=== PATIENT | male | born 1960 | race Caucasian/White ===

== ENCOUNTER → 2023-09-19 10:16 | Outpatient (REF) | payer BC, SELFPAY ==
[2023-09-19 11:17] LABS: % Basophils 0.6 % (0-2); % Immature Granulocytes 0.2 % (0-0.5); % Lymphocytes 20.4 % (20.5-51.1); % Monocytes 9.3 % (1.7-9.3); % Neutrophils 67.5 % (42.2-75.2); Absolute Eosinophils 0.1 10^3/uL (0-0.7); Absolute Lymphocytes 1.1 10^3/uL (1.2-3.4); Absolute Monocytes 0.5 10^3/uL (0.1-0.6); Absolute Neutrophils 3.7 10^3/uL (1.4-6.5); Hematocrit 41.4 % (39.0-52.0); Hemoglobin 14.6 g/dL (13.0-18.0); Mean Corp Hgb Conc. 35.3 g/dL (33.0-37.0); Mean Corpuscular Hgb 30.7 pg (27.0-31.0); Mean Platelet Volume 9.9 fL (7.4-10.4); Nucleated Red Blood Cells % 0 % (-); Platelet Count 193 10^3/uL (130-400); Red Blood Cell Count 4.76 10^6/uL (4.70-6.10); Red Cell Dist. Width 12.9 % (11.5-14.5); White Blood Cell Count 5.4 10^3/uL (4.8-10.8)
[2023-09-19 11:50] LABS: ALT (SGPT) 31 U/L (0-50); AST (SGOT) 29 U/L (17-59); Albumin 4.3 g/dl (3.5-5.0); Alkaline Phosphatase 81 U/L (38-126); Blood Urea Nitrogen 33 mg/dl (9-20); Carbon Dioxide 25 mmol/L (22-30); Chloride 105 mmol/L (98-107); Glucose 148 mg/dl (70-99); HDL Cholesterol 65 mg/dl; LDL Cholesterol, Calculated 102 mg/dl; Potassium 5.7 mmol/L (3.5-5.1); Sodium 140 mmol/L (135-145); Total Cholesterol 175 mg/dl (50-199); Total Protein 6.7 g/dl (6.3-8.2); Triglyceride 42 mg/dl (10-149); Very Low Density Lipoprotein 8 mg/dl (0-30); eGFR > 60.00
[2023-09-19 12:08] LABS: Free T4 1.64 ng/dl (0.78-2.19)
[2023-09-19 12:22] LABS: TSH 0.43 uIU/ml (0.47-4.68)
[2023-09-20 09:24] LABS: Glycohemoglobin (HgbA1c) 5.9 % (4.0-5.6)
== END ==
LOC: REG 10:16
PROVIDERS: ATTENDING PHYSICIAN Physician Assistant; FAMILY PHYSICIAN Family Medicine
DX: E11.9 Type 2 diabetes mellitus without complications (principal); E03.9 Hypothyroidism, unspecified
CPT/HCPCS: 36415; 80053; 80061; 83036; 84439; 84443; 85025

== ENCOUNTER → 2023-11-01 11:36 | Outpatient (REF) | payer BC, SELFPAY ==
[2023-11-01 12:58] LABS: % Basophils 0.6 % (0-2); % Eosinophils 0.7 % (0-6); % Immature Granulocytes 0.3 % (0-0.5); % Monocytes 7.4 % (1.7-9.3); Absolute Eosinophils 0.1 10^3/uL (0-0.7); Absolute Lymphocytes 1.3 10^3/uL (1.2-3.4); Absolute Monocytes 0.5 10^3/uL (0.1-0.6); Absolute Neutrophils 5.2 10^3/uL (1.4-6.5); Hematocrit 41.5 % (39.0-52.0); Mean Corp Hgb Conc. 36.1 g/dL (33.0-37.0); Mean Corpuscular Hgb 31.5 pg (27.0-31.0); Mean Corpuscular Volume 87.2 fL (80.0-94.0); Mean Platelet Volume 9.6 fL (7.4-10.4); Nucleated Red Blood Cells % 0 % (-); Platelet Count 173 10^3/uL (130-400); Red Blood Cell Count 4.76 10^6/uL (4.70-6.10); Red Cell Dist. Width 12.3 % (11.5-14.5); White Blood Cell Count 7.2 10^3/uL (4.8-10.8)
[2023-11-01 13:19] LABS: Urine Albumin Negative (Neg - Trace); Urine Bilirubin Negative (Negative); Urine Character Clear (Clear); Urine Color Yellow; Urine Glucose Negative (Negative); Urine Ketone Negative (Negative); Urine Leukocyte Negative (Negative); Urine Nitrite Negative (Negative); Urine Occult Blood Negative (Negative); Urine Specific Gravity 1.015 (<1.030); Urine Urobilinogen Negative (Neg - 1+); Urine pH 6.5 (5.0-9.0)
[2023-11-01 13:32] LABS: ALT (SGPT) 22 U/L (0-50); AST (SGOT) 27 U/L (17-59); Albumin 4.6 g/dl (3.5-5.0); Alkaline Phosphatase 81 U/L (38-126); Amylase 62 U/L (30-110); Blood Urea Nitrogen 23 mg/dl (9-20); Calcium 9.9 mg/dl (8.4-10.2); Carbon Dioxide 26 mmol/L (22-30); Chloride 99 mmol/L (98-107); Glucose 138 mg/dl (70-99); Lipase 78 U/L (23-300); Potassium 4.7 mmol/L (3.5-5.1); Sodium 136 mmol/L (135-145); Total Bilirubin 1.2 mg/dl (0.2-1.3); Total Protein 6.9 g/dl (6.3-8.2); eGFR > 60.00
== END ==
LOC: RAD 11:36
PROVIDERS: ATTENDING PHYSICIAN Family Medicine
DX: R10.11 Right upper quadrant pain (principal)
CPT/HCPCS: 36415; 71046; 74019; 80053; 81003; 82150; 83690; 85025

== ENCOUNTER → 2023-11-07 08:51 | Outpatient (REF) | payer BC, SELFPAY | LOC: HWRAD 08:51 | PROVIDERS: ATTENDING PHYSICIAN Family Medicine | DX: R10.11 Right upper quadrant pain (principal) | CPT/HCPCS: 76700 ==

== ENCOUNTER 2023-12-11 06:32 | Day surgery (SDC) | payer BC, SELFPAY ==
[2023-12-09 08:53] VITALS: BMI 24.1
[2023-12-11] VITALS (9 sets, daily range): BP systolic 116–134; BP diastolic 48–88; BMI 24.1
--- NOTE | 2023-12-11 10:25 | W.SUR.PREOP ---
Pre-Operative Surgical Note
-
I have examined this patient prior to the performance of the scheduled procedure.
The patient's condition is unchanged from the time of the current History and
Physical and the patient is able to undergo the scheduled procedure.
[2023-12-11 10:41] LABS: Glucose - Point of Care 148 mg/dl (70-99)
[2023-12-11] MEDS: NORMOSOL-R/PLASMALYTE-A 1000 IV (10:45)
[2023-12-11] MEDS: TYLENOL 1000 MG PO (10:53)
[2023-12-11 13:17] LABS: Glucose - Point of Care 178 mg/dl (70-99)
--- NOTE | 2023-12-11 13:44 | W.IMMPOSTOP ---
Surgical Immed Post Op Note
-
Primary Surgeon: Misha Mejia MD
Assisting Surgeon: None
Pre-op Diagnosis: Biliary colic
Post-op Diagnosis: Same
Procedure Performed: Laparoscopic cholecystectomy with cholangiogram
Anesthesia Type: General
Specimen / Cultures: Gallbladder and contents
Estimated Blood Loss: 3 cc
Complications: None
Operative Findings: Fairly normal-appearing gallbladder, fatty cystic triangle. Critical view of safety obtained prior to a cholangiogram which demonstrated no distal filling defects. Duct ligated with 5 mm titanium clips.
--- NOTE | 2023-12-11 13:45 | OR.RPT ---
Operative Report
Operative Report
Patient Name: Jacob Drew
: 1960
Date of Operation: 12/11/2023
Preoperative Diagnosis: Symptomatic Cholelithiasis
Postoperative Diagnosis: Same
Procedure(s):
Laparoscopic Cholecystectomy with Cholangiogram
Surgeon(s):
Dr. Mejia
Payroll Specialist(s):
VALE Sears
Anesthesia: General
Estimated Blood Loss: 3 cc
Urine Output: None
Drains/Lines/Implants: None
Specimens:
1. Gallbladder and contents
HPI/Surgical Indications:
This is a 63-year-old male who presented to my office with postprandial right upper quadrant abdominal pain. Exam, labs and imaging are consistent with symptomatic cholelithiasis. Risks/Benefits/Alternatives were discussed at length, and the patient
agreed to proceed with surgery.
Operative Findings: Fairly normal-appearing gallbladder, fatty cystic triangle. Critical view of safety obtained prior to a cholangiogram which demonstrated no distal filling defects. Duct ligated with 5 mm titanium clips.
Procedure Description:
The patient was brought to the Operating Room and placed in the supine position. IV antibiotics were infused and sequential compression devices were confirmed to be on. Following uneventful induction of general endotracheal anesthesia, an
orogastric tube was placed. The abdomen was prepped and draped in the usual sterile fashion. The abdomen was entered using an infraumbilical open Derek technique with a 12 mm balloon trocar. Pneumoperitoneum to 15 mmHg pressure was obtained
without difficulty and we confirmed that no injury had occurred during our entry. The patient was positioned in reverse trendelenberg and rotated with the right side up slightly. Three (3) 5mm trocars were then placed along the right subcostal
margin. A locking grasping forceps was placed on the fundus of the gallbladder where it was then retracted cephalad and to the right. Using appropriate grasping instruments, the peritoneum overlying the triangle of Calot was incised. The cystic
duct/gallbladder junction was identified, dissected circumferentially. The cystic artery was identified medially and was dissected circumferentially. A critical view was obtained. A clip was then placed on the cystic duct/gallbladder junction and
an intraoperative cholangiogram performed using fluoroscopy, which showed good flow of dye into the duodenum. There were no intra- or extrahepatic bile duct filling defects. The biliary anatomy appeared normal. Following completion of the
cholangiogram, the catheter was removed. Two clips were then placed proximally on the cystic duct and the duct divided. Two clips were placed proximally and one distally on the cystic artery, and the artery was divided. Remaining soft tissue
attachments of the gallbladder to the liver bed were then divided using electrocautery. There was some minimal spillage of bile from our ductotomy, but no spillage of stones. The gallbladder bed was inspected and excellent hemostasis was obtained.
The gallbladder was extracted through the 12 mm trocar site using an endocatch bag. The abdomen was again irrigated and excellent hemostasis was assured. All remaining trocars were then removed and the pneumoperitoneum was evacuated. The 12 mm
trocar site was closed using a figure of 8 of 0 PDS. All trocar sites were closed at the skin level using 4-0 Monocryl followed by Dermabond. Overall, the patient tolerated the procedure well and was taken to the Recovery Room postoperatively in
stable condition.
I was the attending physician and performed the procedure with assistance from the PA above. The assistance of VALE Sears was required due to the complexity of the procedure. During the procedure Sadia assisted with retraction, resection, and
closure of the wound. I was present for all portions of the case
Misha Mejia MD
== END 2023-12-11 14:27 | disposition home or self-care (01) ==
LOC: SDS 06:32
PROVIDERS: ATTENDING PHYSICIAN Surgery; FAMILY PHYSICIAN Family Medicine
DX: K80.10 Calculus of gallbladder with chronic cholecystitis without obstruction (principal)
CPT/HCPCS: 47563; 88304; 36415; 74300; 76000; 82962; 93005

== ENCOUNTER → 2024-04-03 11:46 | Outpatient (REF) | payer BC, SELFPAY ==
[2024-04-03 14:22] LABS: Free T4 1.49 ng/dl (0.78-2.19)
== END ==
LOC: REG 11:46
PROVIDERS: ATTENDING PHYSICIAN Physician Assistant; FAMILY PHYSICIAN Internal Medicine
DX: E03.9 Hypothyroidism, unspecified (principal)
CPT/HCPCS: 36415; 84439; 84443

== ENCOUNTER → 2024-04-17 11:32 | Outpatient (REF) | payer BC, SELFPAY ==
[2024-04-17 13:29] LABS: PSA, Total - Diagnostic < 0.06 ng/ml (0.0-4.0)
[2024-04-20 01:12] LABS: PSA Total <0.1 ng/mL (0.0-4.0)
== END ==
LOC: REG 11:32
PROVIDERS: ATTENDING PHYSICIAN Specialist; FAMILY PHYSICIAN Internal Medicine
DX: Z12.5 Encounter for screening for malignant neoplasm of prostate (principal)
CPT/HCPCS: 36415; 84153; 84154